=== PATIENT | male | born 1975 | race Caucasian/White ===

== ENCOUNTER 2023-02-23 18:51 | Emergency (ER) | payer OTHER, BC, SELFPAY ==
--- NOTE | ~2023-02-23 | XR_ITS ---
EXAMINATION: XR knee LT min 4V DATE: 02/23/2023 20:29 INDICATION: Left knee pain TECHNIQUE: Four views of the left knee were obtained. COMPARISON: None. FINDINGS: Alignment is normal. No fracture or osteochondral lesion. There is mild tricompartmental os teoarthritis characterized by tiny marginal osteophytes. There is a large knee joint effusion. Soft t issues are unremarkable. IMPRESSION: 1. Large knee joint effusion without acute osseous abnormality. Reviewed, dictated and finalized at location F.
[2023-02-23 19:40] VITALS: BP 134/88; PULSE 78; RESP 16; TEMP 37.1; O2SAT 100
--- NOTE | 2023-02-23 21:19 | ED.GENADULT ---
HPI - General Adult General Chief complaint: Extremity Injury, Lower Stated complaint: Left Knee Pain Time Seen by Provider: 02/23/23 21:15 Source: patient, RN notes reviewed and old records reviewed Mode of arrival: ambulatory Limitations: no limitations History of Present Illness HPI narrative: 47-year-old male who presents to [facility] accompanied by spouse with complaints of left knee pain which started yesterday mainly to back of his left knee. Today he has noticed increased pain and worsening swelling of his left knee with increased pain with movement and with weight bearing. Patient does not know of specific injury did play golf a few days ago. Patient reports that he has been taking Tylenol and has been applying ice to his knee. MD complaint: left knee pain Onset (ago): day(s) (day 2 of symptoms) Location: lower extremity (left knee) Severity scale (1-10): 3 Exacerbating factors: other (weight bearing) Treatments prior to arrival: cold therapy and other (Tylenol) Related Data Home Medications Medication Instructions Recorded Confirmed amlodipine 5 mg tablet 5 mg PO DAILY 02/23/23 02/23/23 hydrochlorothiazide 12.5 mg capsule 25 mg PO DAILY 02/23/23 02/23/23 lisinopril 30 mg tablet 30 mg PO DAILY 02/23/23 02/23/23 pantoprazole 40 mg tablet,delayed 40 mg PO DAILY 02/23/23 02/23/23 release pravastatin 40 mg tablet 40 mg PO DAILY 02/23/23 02/23/23 Allergies Allergy/AdvReac Type Severity Reaction Status Date / Time No Known Allergies Allergy Verified 02/23/23 20:12 Review of Systems Review of Systems: CONSTITUTIONAL: Denies fever, chills, or sweats. EYES: Denies visual changes, redness, or discharge. ENT: Denies rhinorrhea, congestion, sore throat, or otalgia. CARDIOVASCULAR: Denies chest pain, palpitations, or edema. RESPIRATORY: Denies cough or dyspnea. GASTROINTESTINAL: Denies abdominal pain, nausea, vomiting, or diarrhea. GENITOURINARY: Denies dysuria or hematuria. SKIN: Denies rash or itching. MUSCULOSKELETAL: Denies back pain,positive for left knee pain and swelling joint, or myalgia. NEUROLOGIC: Denies headache, numbness, or weakness. PSYCHIATRIC: Denies anxiety or depression. All systems reviewed & are unremarkable except as noted in HPI and below PMFSH Past Medical History Medical History (Updated 02/27/23 @ 11:47 by Eloise Rodney NP) Elevated cholesterol Hypertension Social History Social History (Updated 02/27/23 @ 11:47 by Eloise Rodney NP) Smoking status: Never smoker Alcohol intake: current Alcohol use details: social Substance use type: does not use Living arrangements: with family Gender identity (if verbalized by the patient): Male Comments At time of signature, agree with nursing past medical, surgical, social and family history. There is no relevant family history pertinent to the presenting complaint Exam Narrative: GENERAL: Well-appearing, well-nourished, and in no acute distress. HEAD: Normocephalic, atraumatic. EYES: PERRLA and EOMI. ENT: Nares clear, no rhinorrhea or epistaxis. Mucous membranes moist. NECK: Supple.no lymphadenopathy CHEST: Clear to auscultation. No respiratory distress.SAO2 100% on room air HEART: Regular rate and rhythm. No murmur heard. Normal peripheral pulses. ABDOMEN: Soft, nontender, nondistended, normal active bowel sounds. EXTREMITIES: Normal range of motion. No edema.Exception noted to left knee with pressure and discomfort to area behind knee, pain to knee around knee cap region with swelling, increased pain with bending of left knee and weight bearing, negative Homans sign SKIN: Warm, dry, no rash. NEURO: No focal deficits. Alert and oriented x3. Course Course Emergency Course: Patient is aware of diagnosis, understands and agrees to treatment plan.? Anticipatory guidance given.? Patient agrees to follow-up as directed and is aware of reasons to seek care at the emergency department. Portions of this record may have be
== END 2023-02-23 21:30 | disposition home or self-care (01) ==
PROVIDERS: Emergency Provider Registered Nurse; PCP Family Medicine
DX: M25.462 Effusion, left knee (principal); E78.00 Pure hypercholesterolemia, unspecified; I10 Essential (primary) hypertension
CPT/HCPCS: 73564; 99213; G0463